=== PATIENT | male | born 1955 | race Caucasian/White ===

== ENCOUNTER 2020-10-23 19:48 | Inpatient (IN) | payer MEDICAID, OTHER ==
[~2020-10-23] VITALS: Ht 175.3 cm; Wt 74.5 kg
[2020-10-23] MEDS ORDERED: ONDANSETRON HCL 4 MG/2 ML VIAL IV ONE (20:15)
[2020-10-23] MEDS ORDERED: SODIUM CHLORIDE 0.9% 1,000 ML IV ONE (20:15)
[2020-10-23] MEDS ORDERED: PIPERACILLIN-TAZOB 3.375GM 100 ML IV SCH (20:25)
[2020-10-23] MEDS ORDERED: VANCOMYCIN PER PHARMACY 0 MG IV SCH (20:45)
[2020-10-23 21:27] LABS: Basophils # (auto) 0.1 10 ^3/uL (0-0.2); Basophils % (auto) 1.1 % (0.0-2.0); Eosinophils # (auto) 0.2 10 ^3/uL (0-0.8); Eosinophils % (auto) 3.4 % (0.0-7.0); Hematocrit 42.3 % (41.0-53.0); Hemoglobin 13.8 g/dL (13.5-17.5); Lymphocytes # (auto) 1.3 10 ^3/uL (0.4-5.4); Lymphocytes % (auto) 18.9 % (10.0-50.0); Mean Corpuscular Hemoglobin 27.2 pg (28.0-32.0); Mean Corpuscular Hgb Conc. 32.6 g/dL (32.0-36.0); Mean Corpuscular Volume 83.4 fL (80.0-100.0); Monocytes # (auto) 0.5 10 ^3/uL (0-1.3); Monocytes % (auto) 7.9 % (0.0-12.0); Neutrophils # (auto) 4.7 10 ^3/uL (1.6-8.6); Neutrophils % (auto) 68.7 % (37.0-80.0); Nucleated Red Blood Cells % 0.2 %; Platelet Count (auto) 312 10^3/uL (140-450); Red Blood Cells 5.08 10^6/uL (4.5-5.90); Red Cell Distribution Width 17.8 % (11.8-14.3); White Blood Cell 6.9 10^3/uL (4.4-10.8)
[2020-10-23 21:42] LABS: Anion Gap 6 (5-15); Blood Urea Nitrogen 24 mg/dL (7-18); Calcium 8.4 mg/dL (8.5-10.1); Carbon Dioxide 25 mmol/L (21-32); Chloride 109 mmol/L (98-107); Glucose 115 mg/dL (74-106); Potassium 3.8 mmol/L (3.5-5.1); Sodium 140 mmol/L (136-145)
[2020-10-23 21:45] LABS: INR 1.15 (0.9-1.15); Partial Thromboplastin Time 29.3 sec (23.0-31.2)
[2020-10-23 21:48] LABS: Alanine Aminotransferase 30 U/L (16-61); Alkaline Phosphatase 124 U/L (45-117); Aspartate Aminotransferase 22 U/L (15-37); BUN/Creatinine Ratio 26.4; Bilirubin, Total 0.7 mg/dL (0.2-1.0); Blood Alcohol < 3.0 mg/dL (0-5); GFR African American 108 mL/min; GFR Non-African American 89 mL/min; Total Protein 6.8 g/dL (6.4-8.2)
[2020-10-23] MEDS ORDERED: VANCOMYCIN 1GM/250ML 250 ML IV SCH (22:00)
[2020-10-23] MEDS ORDERED: VANCOMYCIN 1GM/250ML 250 ML IV ONE ×2 (22:00→22:37)
[2020-10-23] MEDS ORDERED: IOPAMIDOL 76 % (ISOVUE-370) 100ML BTL IV ONE (22:37)
[2020-10-24] MEDS ORDERED: NITROGLYCERIN 0.4 MG SL TAB SL PRN (00:45)
[2020-10-24] MEDS ORDERED: MORPHINE SULF INJ 2 MG/ML SYRINGE 1ML IV PRN (00:45)
[2020-10-24] MEDS ORDERED: VANCOMYCIN PER PHARMACY 0 MG IV SCH (00:45)
[2020-10-24] MEDS: MORPHINE SULF INJ 2 MG/ML SYRINGE 1ML IV PRN ×2 (01:54→08:59)
[2020-10-24] MEDS: PIPERACILLIN-TAZOB 3.375GM 100 ML IV SCH ×4 (05:57→23:13)
[2020-10-24] MEDS ORDERED: FUROSEMIDE 20 MG/2 ML VIAL IV SCH (10:00)
[2020-10-24] MEDS ORDERED: ENOXAPARIN SOD 40 MG/0.4 ML SYRINGE SC SCH (10:00)
[2020-10-24] MEDS: VANCOMYCIN 750mg/250ml 250 ML IV SCH ×2 (11:12→19:52)
[2020-10-24] MEDS ORDERED: POTA10TA32 PO (11:46)
[2020-10-24] MEDS ORDERED: MUPI2OIN2 TOP (11:46)
[2020-10-24] MEDS ORDERED: CARV3.1240 PO (11:46)
[2020-10-24] MEDS ORDERED: DULO1CAP4 PO (11:46)
[2020-10-24] MEDS ORDERED: FURO40TA4 PO (11:46)
[2020-10-24] MEDS ORDERED: LISI-275 PO (11:46)
[2020-10-24] MEDS ORDERED: ASPI1CHW5 PO (11:46)
[2020-10-24] MEDS ORDERED: FUROSEMIDE 40 MG TAB PO PRN (12:00)
[2020-10-24 12:50] VITALS: BP 92/68
[2020-10-24 16:24] VITALS: BP 106/72
[2020-10-24] MEDS: FUROSEMIDE 40 MG/4 ML VIAL IV SCH (18:19)
[2020-10-24] MEDS: CARVEDILOL 3.125 MG TAB PO SCH (21:41)
[2020-10-24 22:00] VITALS: BP 92/68
[2020-10-24] MEDS ORDERED: POTASSIUM CHL 10 Meq TABLET PO SCH (22:00)
[2020-10-24] MEDS: MUPIROCIN 2% OINT 15gm or 22gm TOP SCH (22:03)
[2020-10-24] MEDS: POTASSIUM CHL 10 Meq TABLET PO SCH (22:03)
[2020-10-25 01:06] LABS: Basophils # (auto) 0.1 10 ^3/uL (0-0.2); Basophils % (auto) 1.2 % (0.0-2.0); Eosinophils # (auto) 0.3 10 ^3/uL (0-0.8); Eosinophils % (auto) 3.5 % (0.0-7.0); Hematocrit 38.2 % (41.0-53.0); Hemoglobin 12.4 g/dL (13.5-17.5); Lymphocytes # (auto) 1.8 10 ^3/uL (0.4-5.4); Lymphocytes % (auto) 23.6 % (10.0-50.0); Mean Corpuscular Hemoglobin 26.9 pg (28.0-32.0); Mean Corpuscular Hgb Conc. 32.5 g/dL (32.0-36.0); Mean Corpuscular Volume 82.8 fL (80.0-100.0); Monocytes % (auto) 13.2 % (0.0-12.0); Neutrophils # (auto) 4.5 10 ^3/uL (1.6-8.6); Neutrophils % (auto) 58.5 % (37.0-80.0); Nucleated Red Blood Cells % 0.1 %; Platelet Count (auto) 289 10^3/uL (140-450); Red Blood Cells 4.62 10^6/uL (4.5-5.90); Red Cell Distribution Width 17.1 % (11.8-14.3); White Blood Cell 7.6 10^3/uL (4.4-10.8)
[2020-10-25 01:20] LABS: INR 1.24 (0.9-1.15)
[2020-10-25 01:27] LABS: BUN/Creatinine Ratio 21.2; Calcium 8.2 mg/dL (8.5-10.1); Potassium 4.4 mmol/L (3.5-5.1)
[2020-10-25] MEDS: VANCOMYCIN 750mg/250ml 250 ML IV SCH ×3 (02:00→19:56)
[2020-10-25 05:00] VITALS: BP 97/75
[2020-10-25] MEDS: FUROSEMIDE 40 MG/4 ML VIAL IV SCH ×2 (05:38→17:25)
[2020-10-25] MEDS: PIPERACILLIN-TAZOB 3.375GM 100 ML IV SCH ×4 (05:38→23:43)
[2020-10-25 08:30] VITALS: BP 102/69
[2020-10-25] MEDS: CYMBALTA 20 MG PO SCH (09:57)
[2020-10-25] MEDS: CARVEDILOL 3.125 MG TAB PO SCH ×2 (09:57→21:17)
[2020-10-25] MEDS: LISINOPRIL 5 MG TAB PO SCH (09:58)
[2020-10-25] MEDS: POTASSIUM CHL 10 Meq TABLET PO SCH ×2 (09:58→21:18)
[2020-10-25] MEDS: MUPIROCIN 2% OINT 15gm or 22gm TOP SCH ×2 (11:08→21:18)
[2020-10-25 12:52] VITALS: BP 107/68
[2020-10-25] MEDS: HYDROcodone-ACET 10/325MG TAB PO PRN ×2 (16:46→22:39)
[2020-10-25 17:06] VITALS: BP 111/75
[2020-10-25 22:00] VITALS: BP 94/73
[2020-10-25 22:30] VITALS: BP 106/68
[2020-10-26] MEDS: CARVEDILOL 3.125 MG TAB PO SCH ×2 (00:42→10:00)
[2020-10-26 05:00] VITALS: BP 91/58
[2020-10-26] MEDS: FUROSEMIDE 40 MG/4 ML VIAL IV SCH (05:35)
[2020-10-26] MEDS: VANCOMYCIN 750mg/250ml 250 ML IV SCH (05:47)
[2020-10-26] MEDS: PIPERACILLIN-TAZOB 3.375GM 100 ML IV SCH ×2 (06:47→11:56)
[2020-10-26] MEDS: LISINOPRIL 5 MG TAB PO SCH (10:00)
[2020-10-26] MEDS: CYMBALTA 20 MG PO SCH (10:00)
[2020-10-26] MEDS: POTASSIUM CHL 10 Meq TABLET PO SCH (10:05)
[2020-10-26] MEDS: MUPIROCIN 2% OINT 15gm or 22gm TOP SCH (10:05)
[2020-10-26] MEDS: MORPHINE SULF INJ 2 MG/ML SYRINGE 1ML IV PRN (10:06)
[2020-10-26] MEDS ORDERED: FURO40TA4 PO (12:53)
[2020-10-26] MEDS ORDERED: DOXY-346 PO (12:53)
[2020-10-26 13:23] VITALS: BP 102/65
[2020-10-26] MEDS: HYDROcodone-ACET 10/325MG TAB PO PRN (14:22)
== END 2020-10-26 14:32 | disposition hospice, home (50) | DRG 383 ==
LOC: ER 19:52 → TELE 10-24 00:31 → TELE-WESTW 10-24 12:24
PROVIDERS: ADMIT Hospitalist; ATTEND Hospitalist
PROC: 0W9B3ZZ Drainage of Left Pleural Cavity, Percutaneous Approach (ICD-10-PCS; principal; 2020-10-25)
DX: L03.116 Cellulitis of left lower limb (principal); I50.23 Acute on chronic systolic (congestive) heart failure; J96.01 Acute respiratory failure with hypoxia; I11.0 Hypertensive heart disease with heart failure; N39.0 Urinary tract infection, site not specified; F19.10 Other psychoactive substance abuse, uncomplicated; F15.10 Other stimulant abuse, uncomplicated; F17.210 Nicotine dependence, cigarettes, uncomplicated; Z51.5 Encounter for palliative care; I08.3 Combined rheumatic disorders of mitral, aortic and tricuspid valves; J91.8 Pleural effusion in other conditions classified elsewhere; I25.10 Atherosclerotic heart disease of native coronary artery without angina pectoris; I27.20 Pulmonary hypertension, unspecified; I42.0 Dilated cardiomyopathy; I42.7 Cardiomyopathy due to drug and external agent; J18.9 Pneumonia, unspecified organism; I87.8 Other specified disorders of veins; Z82.49 Family history of ischemic heart disease and other diseases of the circulatory system; F41.9 Anxiety disorder, unspecified; L97.921 Non-pressure chronic ulcer of unspecified part of left lower leg limited to breakdown of skin; Z20.822 Contact with and (suspected) exposure to COVID-19
CPT/HCPCS: 10022; 36415; 36600; 71045; 71250; 71275; 73700; 76942; 80048; 80053; 80202; 80320; 82553; 82805; 83605; 83880; 84484; 85025; 85379; 85384; 85610; 85730; 87040; 87077; 87186; 87205; 87426; 89051; 93306; 93925; 93971; 96365; 96367; 96375; G0378; J2405; J2543

== ENCOUNTER 2020-11-28 21:29 | Inpatient (IN) | payer MEDICAID ==
[~2020-11-28] VITALS: Ht 175.3 cm; Wt 71.1 kg
[~2020-11-28 21:29] MED LIST: ASPI1CHW5 PO; CARV3.1240 PO; DOXY-346 PO; DULO1CAP4 PO; FURO40TA4 PO; LISI-275 PO; MUPI2OIN2 TOP; POTA10TA32 PO
[2020-11-28 22:12] LABS: Basophils # (auto) 0.1 10 ^3/uL (0-0.2); Eosinophils # (auto) 0.1 10 ^3/uL (0-0.8); Hemoglobin 12.6 g/dL (13.5-17.5); Lymphocytes # (auto) 1.3 10 ^3/uL (0.4-5.4); Monocytes # (auto) 0.8 10 ^3/uL (0-1.3); Neutrophils # (auto) 5.6 10 ^3/uL (1.6-8.6); Nucleated Red Blood Cells % 0.1 %
[2020-11-28 22:14] LABS: Basophils % (auto) 0.9 % (0.0-2.0); Eosinophils % (auto) 1.4 % (0.0-7.0); Hematocrit 39.2 % (41.0-53.0); Lymphocytes % (auto) 16.4 % (10.0-50.0); Mean Corpuscular Hemoglobin 26.4 pg (28.0-32.0); Mean Corpuscular Hgb Conc. 32.1 g/dL (32.0-36.0); Monocytes % (auto) 10.2 % (0.0-12.0); Neutrophils % (auto) 71.1 % (37.0-80.0); Platelet Count (auto) 215 10^3/uL (140-450); Red Blood Cells 4.78 10^6/uL (4.5-5.90); Red Cell Distribution Width 18.2 % (11.8-14.3); White Blood Cell 7.9 10^3/uL (4.4-10.8)
[2020-11-28 22:32] LABS: Alanine Aminotransferase 33 U/L (16-61); Anion Gap 9 (5-15); Aspartate Aminotransferase 35 U/L (15-37); BUN/Creatinine Ratio 30.8; Blood Alcohol < 3.0 mg/dL (0-5); Blood Urea Nitrogen 24 mg/dL (7-18); Calcium 8.4 mg/dL (8.5-10.1); Carbon Dioxide 21 mmol/L (21-32); Chloride 110 mmol/L (98-107); GFR African American 129 mL/min; GFR Non-African American 107 mL/min; Glucose 105 mg/dL (74-106); Potassium 3.4 mmol/L (3.5-5.1); Sodium 140 mmol/L (136-145)
[2020-11-28 22:34] LABS: Alkaline Phosphatase 118 U/L (45-117); Total Protein 6.3 g/dL (6.4-8.2)
[2020-11-29] MEDS ORDERED: PIPERACILLIN-TAZO 4.5GM 100 ML IV ONE (02:00)
[2020-11-29] MEDS ORDERED: VANCOMYCIN 1GM/250ML 250 ML IV ONE (02:00)
[2020-11-29] MEDS ORDERED: FUROSEMIDE 20 MG/2 ML VIAL IV ONE (02:00)
[2020-11-29 02:23] LABS: Alcohol, Urine < 3.0 mg/dL (0-10); Amphetamine Screen, Urine POSITIVE (NEGATIVE); Barbiturate Scree,Urine NEGATIVE (NEGATIVE); Benzodiazephine Screen, Urine NEGATIVE (NEGATIVE); Cannabinoid Screen, Urine NEGATIVE (NEGATIVE); Cocaine Screen, Urine NEGATIVE (NEGATIVE); Opiate Scree,Urine NEGATIVE (NEGATIVE); Phencyclidine Screen, Urine NEGATIVE (NEGATIVE)
[2020-11-29 02:35] LABS: Urine Bacteria FEW /hpf (None Seen); Urine Blood Negative /uL (Negative); Urine Hyaline Cast FEW /lpf (0 - 2); Urine Mucus FEW (None Seen); Urine Specific Gravity 1.025 (1.001-1.035); Urine WBC 2 /hpf (0 - 3)
[2020-11-29] MEDS ORDERED: ACETAMINOPHEN 325 MG TAB PO ONE (06:00)
[2020-11-29] MEDS ORDERED: LORazepam 2MG/ML-1ML VIAL IV ONE (06:00)
[2020-11-29] MEDS ORDERED: MORPHINE SULF INJ 2 MG/ML SYRINGE 1ML IV PRN ×2 (06:15)
[2020-11-29] MEDS ORDERED: ONDANSETRON HCL 4 MG/2 ML VIAL IV PRN (06:15)
[2020-11-29] MEDS ORDERED: NITROGLYCERIN 0.4 MG SL TAB SL PRN (06:15)
[2020-11-29] MEDS ORDERED: VANCOMYCIN PER PHARMACY 0 MG IV SCH (06:45)
[2020-11-29 07:19] LABS: Basophils # (auto) 0.1 10 ^3/uL (0-0.2); Hemoglobin 12.6 g/dL (13.5-17.5); Lymphocytes # (auto) 1.2 10 ^3/uL (0.4-5.4); Monocytes # (auto) 1.4 10 ^3/uL (0-1.3)
[2020-11-29 07:20] LABS: Basophils % (auto) 0.7 % (0.0-2.0); Eosinophils # (auto) 0.1 10 ^3/uL (0-0.8); Eosinophils % (auto) 0.5 % (0.0-7.0); Hematocrit 38.6 % (41.0-53.0); Mean Corpuscular Hemoglobin 26.5 pg (28.0-32.0); Mean Corpuscular Hgb Conc. 32.5 g/dL (32.0-36.0); Mean Corpuscular Volume 81.5 fL (80.0-100.0); Monocytes % (auto) 14.5 % (0.0-12.0); Neutrophils # (auto) 7.1 10 ^3/uL (1.6-8.6); Neutrophils % (auto) 72.3 % (37.0-80.0); Platelet Count (auto) 229 10^3/uL (140-450); Red Blood Cells 4.74 10^6/uL (4.5-5.90); Red Cell Distribution Width 18.5 % (11.8-14.3); White Blood Cell 9.8 10^3/uL (4.4-10.8)
[2020-11-29 07:40] LABS: BUN/Creatinine Ratio 27.8; Calcium 8.7 mg/dL (8.5-10.1); Potassium 3.7 mmol/L (3.5-5.1)
[2020-11-29] MEDS: VANCOMYCIN 1GM/250ML 250 ML IV SCH ×2 (09:49→21:16)
[2020-11-29 10:57] VITALS: BP 112/80
[2020-11-29] MEDS: FUROSEMIDE 20 MG/2 ML VIAL IV SCH ×2 (11:03→21:17)
[2020-11-29] MEDS: ASPirin 81 mg TAB PO SCH (11:03)
[2020-11-29] MEDS: PIPERACILLIN-TAZOB 3.375GM 100 ML IV SCH ×2 (12:44→18:23)
[2020-11-29 13:00] VITALS: BP 98/76
[2020-11-29 16:48] VITALS: BP 97/69
[2020-11-29 20:00] VITALS: BP 110/73
[2020-11-29 22:00] VITALS: BP 110/73
[2020-11-29] MEDS ORDERED: CLINDAMYCIN 600MG IV 50 ML IV SCH (22:45)
[2020-11-29] MEDS: CARVEDILOL 3.125 MG TAB PO SCH (23:48)
[2020-11-29] MEDS: CLINDAMYCIN 600MG IV 50 ML IV SCH (23:49)
[2020-11-30 04:44] VITALS: BP 100/68
[2020-11-30] MEDS: CLINDAMYCIN 600MG IV 50 ML IV SCH ×3 (05:26→21:19)
[2020-11-30 08:51] VITALS: BP 121/66
[2020-11-30] MEDS: ASPirin 81 mg TAB PO SCH (09:15)
[2020-11-30] MEDS: FUROSEMIDE 20 MG/2 ML VIAL IV SCH ×2 (09:15→21:17)
[2020-11-30] MEDS: CARVEDILOL 3.125 MG TAB PO SCH (09:16)
[2020-11-30 13:00] VITALS: BP 100/77
[2020-11-30 16:53] VITALS: BP 94/72
[2020-11-30] MEDS ORDERED: LORazepam 0.5 MG TAB PO ONE (17:15)
[2020-11-30] MEDS ORDERED: SODIUM CHLORIDE 0.9% 250 ML IV ONE (18:15)
[2020-11-30] MEDS: HYDROcodone-ACET 5/325MG TAB PO PRN ×2 (18:27→23:58)
[2020-11-30 22:00] VITALS: BP 93/71
[2020-12-01 05:00] VITALS: BP 101/72
[2020-12-01] MEDS: CLINDAMYCIN 600MG IV 50 ML IV SCH ×3 (05:54→13:20)
[2020-12-01 09:00] VITALS: BP 95/68
[2020-12-01] MEDS: ASPirin 81 mg TAB PO SCH (09:40)
[2020-12-01] MEDS: FUROSEMIDE 20 MG/2 ML VIAL IV SCH (10:00)
[2020-12-01 13:00] VITALS: BP 91/75
[2020-12-01] MEDS ORDERED: LORazepam 0.5 MG TAB PO PRN (14:45)
[2020-12-01 16:49] VITALS: BP 95/70
== END 2020-12-01 17:55 | DRG 194 ==
LOC: ER 21:31 → TELE 11-29 06:08 → TELE-WESTW 11-29 10:25
PROVIDERS: ADMIT Hospitalist; ATTEND Hospitalist
DX: I11.0 Hypertensive heart disease with heart failure (principal); L03.115 Cellulitis of right lower limb; L03.116 Cellulitis of left lower limb; Z20.822 Contact with and (suspected) exposure to COVID-19; I50.23 Acute on chronic systolic (congestive) heart failure; I42.9 Cardiomyopathy, unspecified; F19.129 Other psychoactive substance abuse with intoxication, unspecified; J98.11 Atelectasis; F17.210 Nicotine dependence, cigarettes, uncomplicated; F32.9 Major depressive disorder, single episode, unspecified; F41.9 Anxiety disorder, unspecified; Z91.19 Patient's noncompliance with other medical treatment and regimen
CPT/HCPCS: 36415; 71045; 80048; 80053; 80307; 80320; 81001; 83605; 83880; 85025; 87040; 87077; 87186; 87205; 87426; 93005; 96365; 96367; 96375; G0378; J2543; J3490

== ENCOUNTER 2021-02-12 17:14 | Emergency (ER) | payer MEDICAID ==
[~2021-02-12] VITALS: Ht 182.9 cm; Wt 81.6 kg
[~2021-02-12 17:14] MED LIST changes: -DOXY-346 PO
[2021-02-12 18:59] LABS: Basophils # (auto) 0.1 10 ^3/uL (0-0.2); Basophils % (auto) 1.1 % (0.0-2.0); Eosinophils # (auto) 0.1 10 ^3/uL (0-0.8); Eosinophils % (auto) 0.9 % (0.0-7.0); Hematocrit 36.4 % (41.0-53.0); Hemoglobin 12.4 g/dL (13.5-17.5); Lymphocytes # (auto) 1.4 10 ^3/uL (0.4-5.4); Lymphocytes % (auto) 13.8 % (10.0-50.0); Mean Corpuscular Hemoglobin 28.3 pg (28.0-32.0); Mean Corpuscular Hgb Conc. 34.1 g/dL (32.0-36.0); Mean Corpuscular Volume 83.1 fL (80.0-100.0); Monocytes # (auto) 1.6 10 ^3/uL (0-1.3); Monocytes % (auto) 15.2 % (0.0-12.0); Neutrophils # (auto) 7.2 10 ^3/uL (1.6-8.6); Nucleated Red Blood Cells % 0.1 %; Red Blood Cells 4.38 10^6/uL (4.5-5.90); White Blood Cell 10.4 10^3/uL (4.4-10.8)
[2021-02-12 19:09] LABS: Calcium 8.3 mg/dL (8.5-10.1); Potassium 4.6 mmol/L (3.5-5.1)
[2021-02-12 19:22] LABS: Red Cell Distribution Width 22.2 % (11.8-14.3)
[2021-02-12 19:26] LABS: Bilirubin, Total 1.2 mg/dL (0.2-1.0); Total Protein 6.3 g/dL (6.4-8.2)
[2021-02-12] MEDS ORDERED: ALPRAZolam 0.5 MG TAB PO ONE (23:15)
[2021-02-12] MEDS ORDERED: clonazePAM 0.5 MG TAB PO ONE (23:15)
[2021-02-13 01:05] LABS: Urine Bacteria FEW /hpf (None Seen); Urine Blood Negative /uL (Negative); Urine Hyaline Cast MANY /lpf (0 - 2); Urine Mucus FEW (None Seen); Urine Specific Gravity 1.024 (1.001-1.035); Urine WBC 3 /hpf (0 - 3)
[2021-02-13 01:18] LABS: Amphetamine Screen, Urine NEGATIVE (NEGATIVE); Barbiturate Scree,Urine NEGATIVE (NEGATIVE); Benzodiazephine Screen, Urine NEGATIVE (NEGATIVE); Cannabinoid Screen, Urine NEGATIVE (NEGATIVE); Cocaine Screen, Urine NEGATIVE (NEGATIVE); Opiate Scree,Urine NEGATIVE (NEGATIVE); Phencyclidine Screen, Urine NEGATIVE (NEGATIVE)
[2021-02-13 06:00] VITALS: BP 110/71
== END 2021-02-13 06:34 | disposition home or self-care (01) ==
LOC: EDBD 17:14 → ER 17:14
DX: F41.9 Anxiety disorder, unspecified (principal); F32.9 Major depressive disorder, single episode, unspecified; R19.7 Diarrhea, unspecified; F17.210 Nicotine dependence, cigarettes, uncomplicated
CPT/HCPCS: 36415; 80053; 80307; 81001; 84484; 85025; 85049; 93005